=== PATIENT | male | born 1995 | race Asian ===

== ENCOUNTER 2017-05-01 01:56 | Emergency (ER) | payer BC ==
[~2017-05-01] VITALS: Ht 177.8 cm; Wt 84.1 kg
[2017-05-01] MEDS ORDERED: FAMOTIDINE 20 MG TABLET PO ONE (02:30)
[2017-05-01] MEDS ORDERED: ONDANSETRON ODT 4 MG PO ONE (02:30)
[2017-05-01] MEDS ORDERED: ONDANSETRON ODT 8 MG ONE (02:32)
[2017-05-01] MEDS ORDERED: FAMOTIDINE 20 MG TABLET ONE (02:32)
[2017-05-01] MEDS ORDERED: MAALOX/HYOSCYAMINE/LIDOCAINE 45 ML BTL ONE (02:56)
[2017-05-01] MEDS ORDERED: MAALOX/HYOSCYAMINE/LIDOCAINE 45 ML BTL PO ONE (03:00)
[2017-05-01 03:19] LABS: BASOPHILS # (AUTO) 0.03 x10^3/uL (0-0.1); BASOPHILS % (AUTO) 0 % (0-1); EOSINOPHILS # (AUTO) 0.05 x10^3/uL (0-0.4); EOSINOPHILS % (AUTO) 1 % (1-7); LYMPHOCYTES # (AUTO) 1.04 x10^3/uL (1-3.4); LYMPHOCYTES % (AUTO) 12 % (22-44); MD NO; MEAN CORPUSCULAR HEMOGLOBIN 29.4 pg (27.5-34.5); MEAN CORPUSCULAR VOLUME 86.5 fL (81-97); MEAN PLATELET VOLUME 8.1 fL (7.4-10.4); MONOCYTES # (AUTO) 0.49 x10^3/uL (0.2-0.8); MONOCYTES % (AUTO) 6 % (2-9); NEUTROPHILS # (AUTO) 7.07 x10^3/uL (1.8-6.8); NEUTROPHILS % (AUTO) 82 % (42-75); PLATELET COUNT 221 x10^3/uL (130-400); RED BLOOD COUNT 4.94 x10^6/uL (4.38-5.82); RED CELL DISTRIBUTION WIDTH 12.7 % (9.4-14.8)
[2017-05-01 03:22] VITALS: BP 102/60
[2017-05-01 03:24] LABS: ALANINE AMINOTRANSFERASE 25 U/L (12-78); ALBUMIN 4.1 g/dL (3.4-5.0); ANION GAP 10 mmol/L (5-15); CALCIUM 8.6 mg/dL (8.5-10.1); CHLORIDE 107 mmol/L (98-107)
[2017-05-01 03:28] LABS: CREATININE 0.78 mg/dL (0.7-1.3)
[2017-05-01 03:29] LABS: ALKALINE PHOSPHATASE 50 U/L (45-117); BILIRUBIN,TOTAL 0.4 mg/dL (0.2-1.0); TOTAL PROTEIN 7.4 g/dL (6.4-8.2); TROPONIN I < 0.015 ng/mL (0.000-0.045)
[2017-05-01] MEDS ORDERED: OXYcodone/APAP 5/325MG TABLET ONE (03:38)
[2017-05-01] MEDS ORDERED: OXYcodone/APAP 5/325MG TABLET PO ONE (04:00)
== END 2017-05-01 04:12 | disposition home or self-care (01) ==
LOC: ED 03:11
DX: K52.9 Noninfective gastroenteritis and colitis, unspecified (principal); T78.40XA Allergy, unspecified, initial encounter; Z88.1 Allergy status to other antibiotic agents
CPT/HCPCS: 36415; 71046; 80053; 84484; 85025; 93005; 99285; J7512; Q0162; Q0177